=== PATIENT | female | born 1980 | race Caucasian/White ===

== ENCOUNTER 2020-01-05 10:35 | Emergency (ER) | payer BC, OTHER ==
--- NOTE | 2020-01-05 12:06 | EDM.PDOC ---
ED HPI GENERAL MEDICAL PROBLEM - General Chief Complaint: Lower Extremity Injury/Pain Stated Complaint: BROKEN TOE Time Seen by Provider: 01/05/20 10:40 Source of Information: Reports: Patient History Limitations: Reports: No Limitations - History of Present Illness INITIAL COMMENTS - FREE TEXT/NARRATIVE: Patient was in grocery store when her son accidentally kicked her right fifth toe causing displacement of 5th toe. Now with pain and displacement. Happened just prior to coming to the ED. Deformity presnet of 5th toe. History of prior 5th toe fracture. 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 Initial deformity corrected on post reduction film. Fracture of 5th toe middle phalanx Post op shoe and magalys taping to right 5th toe Last Recorded V/S: Last Vital Signs Temp 98.7 F 01/05/20 11:25 Pulse 72 01/05/20 11:25 Resp 16 01/05/20 11:25 BP 125/58 L 01/05/20 11:25 Pulse Ox 99 01/05/20 11:25 - Orders/Labs/Meds Orders: Active Orders 24 hr Category Date Time Status Toes Fifth Digit Rt T9 [CR] Stat Exams 01/05/20 10:50 Taken Toes Fifth Digit Rt T9 [CR] Stat Exams 01/05/20 11:39 Taken Departure - Departure Time of Disposition: 13:25 Disposition: Home, Self-Care 01 Condition: Good Clinical Impression: Fracture of fifth toe, right, closed Qualifiers: Encounter type: initial encounter Qualified Code(s): S92.501A - Displaced unspecified fracture of right lesser toe(s), initial encounter for closed fracture - Discharge Information Instructions: Toe Fracture, [id number], Cellulitis, Adult Referrals: PCP,None [Primary Care Provider] - Forms: ED Department Discharge Additional Instructions: Tylenol and/or Ibuprofen for pain. Ice for 20 minutes at a time and elevate above heart as much as possible. Wear Post Op shoe for 6 weeks. Watch for signs and symptoms of infection. Sepsis Event Note (ED) - Evaluation Sepsis Screening Result: No Definite Risk - My Orders Last 24 Hours: My Active Orders 01/05/20 10:50 Toes Fifth Digit Rt T9 [CR] Stat 01/05/20 11:39 Toes Fifth Digit Rt T9 [CR] Stat - Assessment/Plan Last 24 Hours: My Active Orders 01/05/20 10:50 Toes Fifth Digit Rt T9 [CR] Stat 01/05/20 11:39 Toes Fifth Digit Rt T9 [CR] Stat
--- NOTE | 2020-01-06 08:41 | CR ---
Date of Service: 01/05/2020 Clinical Data: post bone post RIGHT FIFTH TOE: There is an oblique fracture through the distal aspect of the proximal phalanx with lateral angulation and displacement of the distal fragment with respect to the proximal. No other acute abnormalities. [id number] MTDD
--- NOTE | 2020-01-06 08:45 | CR ---
Date of Service: 01/05/2020 Clinical Data: BROKEN TOE RIGHT FIFTH TOE: Post reduction views are reviewed. Comparison is made to the prior exam from earlier in the day. The fracture of the proximal phalanx of the fifth toe is again seen. The fracture fragments have been reduced and they are in near anatomic alignment and position. The exam is otherwise unchanged from the prior. [id number] [facility]
== END 2020-01-05 13:31 | disposition home or self-care (01) ==
LOC: LB.ED 10:35
DX: S92.511A Displaced fracture of proximal phalanx of right lesser toe(s), initial encounter for closed fracture (principal); W22.8XXA Striking against or struck by other objects, initial encounter; Y92.512 Supermarket, store or market as the place of occurrence of the external cause
CPT/HCPCS: 28510; 73660-T9; 99282; 99283-25

== ENCOUNTER 2020-01-13 14:23 | Emergency (ER) | payer BC ==
[2020-01-13 14:42] VITALS: BP 137/83; PULSE 91
--- NOTE | 2020-01-13 18:42 | ER ---
REASON FOR EMERGENCY ROOM VISIT: Right-sided facial weakness and abnormal taste. 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 Along with this, she states that she has a decreased taste and that taste is actually "funny." This was all noted to be present after she awoke this morning. Shortly upon awakening, she also had a mild right-sided headache which resolved on its own. She notes that she is not one that typically get a lot of headaches. This was on the right side. She denies any actual visual symptoms. She denies any numbness or weakness. She stated that the left side of her face felt "funny," but denies that it feels numb. She denies any tingling. She did not have any actual visual symptoms. She does admit that she has been under a lot of stress lately with the demands of her job as well as family as she has 3 children at home. It should be noted that a couple of weeks ago she was bit on the right side of her back by which she thought was a normal wood tick and not a deer tick. She did develop what sounds like an erythematous reaction to this and although the tick was removed. Dr. Daniels went ahead and treated her for this with Keflex. The redness slowly resolved on its own and she has not had any symptoms reparable to this until possibly the onset of the above-mentioned symptoms. She has a strong family history of early coronary artery disease with her father having at the age of 42 and her paternal grandfather at the same age from myocardial infarctions. She had a negative stress test last year. PAST MEDICAL HISTORY: 1. Obesity. 2. Smoker. MEDICATIONS: None. ALLERGIES: NONE. 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 She smokes. She drinks infrequently. She is and has 3 kids. FAMILY HISTORY: As noted above. Father and paternal grandfather both at the age of 42 from myocardial infarction. Her mother is alive and well. She has a half-sister who is healthy and 3 children who are alive and well. REVIEW OF SYSTEMS: Pertinent positives and negatives as noted in the HPI. PHYSICAL EXAMINATION: GENERAL: Reveals a pleasant woman who is calm and alert and in no acute distress. VITAL SIGNS: She is afebrile. Pulse rate is 91, blood pressure 137/83, respirations 18, O2 sats 98%. HEENT: Head is normocephalic. There is no temporal artery tenderness. TMs are normal. Oropharynx is normal. NECK: Supple. There are no bruits. No adenopathy or JVD. CHEST: Clear to auscultation. CARDIAC: Regular rate without murmur. ABDOMEN: Soft and nontender. EXTREMITIES: Normal pulses. No edema. SKIN: No rashes including no facial rashes. NEUROLOGIC: She has complete right facial nerve palsy with weakness in her right facial muscles from her eyebrow all the way down to her chin that is evident on examination. The remainder of her cranial nerves are intact. Muscle strength, bulk and tone are normal and symmetrical bilaterally in the upper and lower extremities. Deep tendon reflexes are symmetrical bilaterally in the upper and lower extremities. Sensory examination is normal to crude touch including facial sensation. Romberg test is negative. LABORATORY DATA: Her CBC is normal. A sedimentation rate is pending. A CT scan of her head was done because of the history of a headache that was present when she woke up. This revealed that she had an area of questionable clinical significance in her left frontal lobe consisting of a 2 mm hyperdense focus. I spoke with the radiologist, Dr. Null and she felt that this could well be ambulatory service representative of calcification or be simply nothing of significance, but it was her feeling that in order to be certain an MRI would be the best approach. I also spoke with Dr. Lacy, the neurologist on-call at [facility] in [place] and reviewed the patient's case with him as well as the dilemma concerning the CT findings. It was his feeling that it would probably be safest to go ahead and see if we can arrange an MRI some time within the next 24 hours and that would be a sensible safe approach. He agreed with me based on what I described to him that this seems to be an insignificant finding, but we still probably ought to evaluate further for the sake of completeness. IMPRESSION: Randhawa's palsy, right. PLAN: An MRI is scheduled for her in [place] tomorrow afternoon. I explained the CT findings and my consultation with Radiology and Neurology. I feel that this is not something that urgently needs to be imaged this evening and that it is perfectly acceptable to go ahead and have this done tomorrow. In the meantime, we will start her on oral prednisone as treatment for her Randhawa's palsy. She will receive 60 mg p.o. daily x7 days followed by a taper by 10 mg per day until this has been completed. We did discuss potential antiviral therapy and it is my opinion that the benefits are probably marginal if at all. I advised her regarding protection of her right eye with Artificial Tears and gel at night particularly and to continue wearing glasses to protect her eye. She understands this. I also discussed the importance of something like Prilosec which she has at home and she should probably take this prophylactically with her being on steroids for this length of time. The possible need for an EMG was reviewed with her and I do not feel it is essential at this juncture. I told her that her chances of recovery are at least 80% over the next 6 months' time and that she should follow up with Dr. Daniels within the next week or two. All questions were answered. She will have the MRI tomorrow. She understands that I will be leaving tomorrow morning and I will pass this on to Dr. Daniels. BRIGIDA/ANASTASIYA /[id number]
--- NOTE | 2020-01-13 21:19 | CT ---
DATE OF SERVICE: 01/13/2020 CLINICAL DATA: Weakness . UNENHANCED BRAIN CT: Multislice acquisition through the brain without IV contrast was performed. No priors. No masses. No mass effect. There is a 3 mm oval shaped hyperdense focus located adjacent to a gyri in the left frontal region. This is of uncertain significance. I cannot exclude a small focus of hemorrhage. It could be calcification. No other hyperdense or hyperlucent foci. No evidence of acute or subacute infarct. No osseous abnormalities. The patient's physician was notified of the findings by telephone and by virtual radiologic preliminary radiology report. [id number] [facility]
[2020-01-20 13:10] LABS: LYME IGG/IGM AB <0.91 ISR (0.00-0.90)
== END 2020-01-13 16:50 | disposition home or self-care (01) ==
LOC: LB.ED 14:23
DX: G51.0 Bell's palsy (principal); F17.200 Nicotine dependence, unspecified, uncomplicated; E66.9 Obesity, unspecified; Z68.36 Body mass index [BMI] 36.0-36.9, adult
CPT/HCPCS: 36415; 70450; 85025; 85651; 86618; 99284; 99285-25